=== PATIENT | male | born 1955 | race Caucasian/White ===

== ENCOUNTER 2023-10-25 10:03 | Outpatient (CLI) | payer MEDICARE, BC, SELFPAY | END 2023-10-25 10:04 | disposition home or self-care (01) | PROVIDERS: PCP Family Medicine; Visit Provider Family Medicine | DX: Z00.00 Encounter for general adult medical examination without abnormal findings (principal); I10 Essential (primary) hypertension; E78.2 Mixed hyperlipidemia; Z12.5 Encounter for screening for malignant neoplasm of prostate | CPT/HCPCS: 80048; 80061; 84460; G0103 ==

== ENCOUNTER 2024-03-10 23:28 | Emergency (ER) | payer MEDICARE, BC, SELFPAY ==
[2024-03-10 23:36] VITALS: BP 166/88; PULSE 74; RESP 20; TEMP 36.6; O2SAT 99; BMI 40.7
--- NOTE | 2024-03-10 23:54 | ED.GENADULT ---
HPI - General Adult General Time Seen by Provider: 23:54 Date Seen: 03/10/24 Chief complaint: Rib Pain Stated complaint: Fell down around 1700, R side pain Time Seen by Provider: 03/10/24 23:53 Source: patient, RN notes reviewed and old records reviewed Mode of arrival: ambulatory Limitations: no limitations History of Present Illness HPI narrative: This 68-year-old male is coming into the ER with right lateral lower chest wall pain. He was cutting wood earlier this evening, stepped over a log and fell. He is not exactly sure what he hit but he has subsequently developed right outside lower chest wall pain. It hurts with movement, hurts with deep breathing. He is not short of breath. He has no abdominal pain. There was no loss of consciousness, did not hit his head, no neck or back pain. No pain in any of his extremities, notes no other injuries with this. He does take an 81 mg aspirin daily but is not on any blood thinners otherwise. In review of his records, creatinine has ranged 1.2-1.3 with an estimated creatinine clearance of 58-62 since November of 2022. Note patient tried ibuprofen without any relief of symptoms earlier. Related Data Home Medications ?Medication ?Instructions ?Recorded ?Confirmed aspirin 81 mg tablet,delayed 81 mg PO QDAY 01/10/22 03/10/24 release cetirizine 10 mg tablet 10 mg PO QDAY PRN 01/10/22 03/10/24 fwfhnytw-os-egxqj 300 mcg-K 60 1 tab PO QDAY 01/10/22 03/10/24 mcg-lycop 600 mcg-lutein 300 mcg tablet (Centrum Silver Men) Previous Rx's ?Medication ?Instructions ?Recorded furosemide 20 mg tablet 20 mg PO DAILY #90 tabs 10/25/23 lisinopril 20 1 tab PO QDAY #90 tabs 10/25/23 mg-hydrochlorothiazide 25 mg tablet simvastatin 40 mg tablet 40 mg PO QPM #90 tabs 10/25/23 aluminum chloride 20 % topical 1 applic topical 2XW #37.5 mL 12/14/23 solution (Drysol) Allergies Allergy/AdvReac Type Severity Reaction Status Date / Time Penicillins Allergy Intermediate Blister Verified 03/10/24 23:38 naproxen Allergy Mild Blister Verified 03/10/24 23:38 Review of Systems Status of ROS: Reports: 6 or more systems reviewed and unremarkable except as noted in History and below [facility] Medical History Pes planus of both feet ?M21.41 - Flat foot [pes planus] (acquired), right foot (ICD-10) ?M21.42 - Flat foot [pes planus] (acquired), left foot (ICD-10) Hyperhidrosis ?R61 - Generalized hyperhidrosis (ICD-10) TAMMY on CPAP ?G47.33 - Obstructive sleep apnea (adult) (pediatric) (ICD-10) ?Z99.89 - Dependence on other enabling machines and devices (ICD-10) Erectile dysfunction ?N52.9 - Male erectile dysfunction, unspecified (ICD-10) Mixed hyperlipidemia ?E78.2 - Mixed hyperlipidemia (ICD-10) Primary hypertension ?I10 - Essential (primary) hypertension (ICD-10) Surgical History S/P shoulder surgery ?Z98.890 - Other specified postprocedural states (ICD-10) Status post vasectomy ?Z98.52 - Vasectomy status (ICD-10) Status post bunionectomy ?Z98.890 - Other specified postprocedural states (ICD-10) Family History Other Colon cancer Diabetes Social History Narrative: , six kids, retired, nonsmoker, social ETOH, goes camping on his land in [place] What is your current living situation?: I presently have a place to live Problems where you live: no known problems In the past 12 months, utilities in danger of being shut off: no In past 12 months, lack of transportation kept you from medical appts, meetings, work, or getting things needed for daily living: no In the past 12 mos, have been you worried that your food would run out before you had money to buy more?: never true In the past 12 mos, the food you bought just didn't last and you didn't have money to buy more?: never true Smoking Status: Former smoker Second hand tobacco smoke exposure: No How often do you have a drink containing alcohol: never AUDIT-C Alcohol total score: 0 Non-prescribed substance use: denies use How often does anyone, including family, friends and others, physically hurt you: never How often does anyone, including family, friends and others, insult or talk down to you: rarely How often does anyone, including family, friends and others, threaten you with harm: never How often does anyone, including family, friends and others, scream or curse at you: never Little interest or pleasure in doing things: not at all Feeling down, depressed, or hopeless: not at all Exam Const: Vital Signs, click to edit/add: Vital Signs - 24 hr 03/10/24 23:36 Temperature 97.9 F Pulse Rate [Right Pulse Oximeter] 74 Respiratory Rate 20 Blood Pressure [Ri ght Upper Arm] 166/88 H Pulse Oximetry 99 Oxygen Delivery Me thod Room Air Ish is a 68-year-old male that is alert, interactive, no apparent distress. Sitting up on the edge of the exam bed in room 1. Pupils equal round, conjugate gaze. Face atraumatic. Able speak in complete sentences, speech is normal. No midline tenderness over his neck or back. He has some generalized chest wall tenderness on the right lateral lower chest wall but no crepitus or step-off. Lungs are clear, good air entry, no wheezing or crackles. CV regular rate and rhythm, no murmur, normal S1-S2, no S3-S4. Abdomen is obese but soft, nontender. Patient ambulatory into the ED of his own accord. Documenting provider has reviewed patient's vital signs: yes Course Course ED Course: Discussed imaging modality options with patient. We can do chest x-ray with right rib views, but fractures can sometimes be missed on this imaging modality. We discussed the pros and cons of doing chest CT imaging. There is added expense with this imaging as well as radiation increased risk. Patient opted to have rib imaging done with plain films which I think is very reasonable in his situation. We did discuss that if the rib images do not show any fracture, we will be discussing clinical treatment and further pain management. Patient is in agreement with the plan, he is certainly hemodynamically stable and oxygenating well. Reevaluation(s) Time of Reevaluation #1: 01:27 Reevaluation #1: Reviewed with patient that there are 3 rib fractures, provided him a copy of his x-ray report. He is hemodynamically stable, oxygenating well. Discussed that we will hospitalize patients with rib fractures at times but agree that this patient certainly can be managed outpatient with his current clinical presentation. Will treat with oxycodone for pain management. Nursing staff appropriately brought up incentive spirometry, will send him home with 1, they will educate on use. He will need oxycodone from [facility]. Did provide 20 tablets as this patient is going to need longer pain management with 3 rib fractures. He does understand that he will need further supplies of pain management from his clinic. Vital Signs Vital signs: Initial Vital Signs Temperature 97.9 F 03/10/24 23:36 Temperature Source Temporal Artery Scan 03/10/24 23:36 Pulse Rate 74 03/10/24 23:36 Respiratory Rate 20 03/10/24 23:36 Blood Pressure 166/88 H 03/10/24 23:36 Blood Pressure Mean 114 H 03/10/24 23:36 Blood Pressure Position Sitting 03/10/24 23:36 Pulse Oximetry 99 03/10/24 23:36 Oxygen Delivery Method Room Air 03/10/24 23:36 Vital Signs Temperature 97.9 F 03/10/24 23:36 Pulse Rate 74 03/10/24 23:36 Respiratory Rate 20 03/10/24 23:36 Blood Pressure 166/88 H 03/10/24 23:36 Pulse Oximetry 99 03/10/24 23:36 Oxygen Delivery Method Room Air 03/10/24 23:36 Temperature 97.9 F 03/10/24 23:36 Pulse Rate 74 03/10/24 23:36 Respiratory Rate 20 03/10/24 23:36 Blood Pressure 166/88 H 03/10/24 23:36 Pulse Oximetry 99 03/10/24 23:36 Oxygen Delivery Method Room Air 03/10/24 23:36 Medications Administered Medications: Generic Name Dose Route Start Last Admin Trade Name Freq PRN Reason Stop Dose Admin Oxycodone HCl 5 mg 03/11/24 01:27 03/11/24 01:30 Oxycodone 5 Mg Tablet PO 03/11/24 01:28 5 mg ONCE ONE Administration Medical Decision Making Imaging Data Chest x-ray: Attestation: I have reviewed the pertinent imaging results. Radiologist's impression: Patient: ISH CHRISTOPHER Facility:?[facility] Patient ID:?[id number] Site Patient ID:?[id number]. Site :?[id number] Study:?XRay-Chest Right RIBS W/CXR-03/11/2024 12:27:59 AM Ordering Physician:Ashley Villarreal Final Report: Indication: Fall, right lateral lower chest wall pain Technique: Frontal view of the chest and four views of the right ribs Comparison: None Findings/Impression: 1. Mild cardiomegaly and atelectasis. 2. Mildly displaced fractures of the right 7th, 8th, and 9th ribs. No visualized pneumothorax. Dictated by Ivan Salazar MD @ 03/11/2024 1:21:33 AM (Electronic Signature) Discharge Plan Discharge Clinical Impression: Multiple rib fractures Qualifiers: Encounter type: initial encounter Fracture type: closed Laterality: right Qualified Code(s): S22.41XA - Multiple fractures of ribs, right side, initial encounter for closed fracture Patient Disposition: Home, Self-Care Condition: Stable Instructions: Rib Fracture (ED) Additional Instructions: Use Tylenol 1000 mg 3 times a day baseline for pain. Oxycodone is prescribed for more severe pain, follow bottle directions for dosing. You will need further prescriptions from your primary care provider for the oxycodone, please contact them to get scheduled for a recheck within the next few days and to get further pain management if needed. Oxycodone is a narcotic, do recommend taking with food. To avoid constipation from the narcotic, go on MiraLax 17 g daily an add in senna per package directions to maintain normal bowel movements. For the rib fractures, use the incentive spirometer to help keep the lungs aerated. Hanging onto the right chest wall with movement, coughing or sneezing can help diminish pain. Review handouts, if there concerning symptoms developing, please seek re-evaluation. Activity Level: Activity as Tolerated Prescriptions: No Action furosemide 20 mg tablet 20 mg PO DAILY Qty: 90 3RF lisinopril-hydrochlorothiazide 20-25 mg tablet 1 tab PO QDAY Qty: 90 1RF simvastatin 40 mg tablet 40 mg PO QPM Qty: 90 3RF aspirin 81 mg tablet,delayed release (DR/EC) 81 mg PO QDAY Centrum Silver Men 300-600-300 mcg tablet 1 tab PO QDAY cetirizine 10 mg tablet 10 mg PO QDAY PRN Drysol 20 % solution 1 applic topical 2XW Qty: 37.5 0RF Follow Up/Referrals: Phan Ambrose MD [Primary Care Provider] - Stand Alone Forms: [facility] Info Instructions
--- NOTE | 2024-03-11 | CRLHL7_ITS ---
For Patients: As a result of the Cures Act, medical imaging exams and procedure reports are released immediately into your electronic medical record. You may view this report before your referring provider. If you have questions, please contact your health care provider. Indication: Fall, right lateral lower chest wall pain Technique: Frontal view of the chest and four views of the right ribs Comparison: None Findings/Impression: 1. Mild cardiomegaly and atelectasis. 2. Mildly displaced fractures of the right 7th, 8th, and 9th ribs. No visualized pneumothorax. Dictated by Ivan Salazar MD @ 03/11/2024 1:21:33 AM (Electronically Signed)
[2024-03-11] MEDS: OXYCODONE 5 MG TABLET PO (01:30)
[2024-03-11 01:53] VITALS: BP 154/78; PULSE 78; RESP 20; TEMP 36.6; O2SAT 99
[2024-03-11 01:54] VITALS: BP 154/78; PULSE 78; RESP 20; TEMP 36.6
== END 2024-03-11 01:54 | disposition home or self-care (01) ==
PROVIDERS: Emergency Provider Family Medicine; PCP Family Medicine
DX: S22.41XA Multiple fractures of ribs, right side, initial encounter for closed fracture (principal)
CPT/HCPCS: 71101; 99283; 99284; A9270

== ENCOUNTER 2024-11-04 10:04 | Outpatient (CLI) | payer MEDICARE, BC, SELFPAY | END 2024-11-04 10:05 | disposition home or self-care (01) | PROVIDERS: PCP Family Medicine; Visit Provider Family Medicine | DX: E78.2 Mixed hyperlipidemia (principal); I10 Essential (primary) hypertension; R06.09 Other forms of dyspnea; Z12.5 Encounter for screening for malignant neoplasm of prostate | CPT/HCPCS: 80048; 80061; 83880; 84443; 84460; 85025; G0103 ==

== ENCOUNTER 2024-11-12 14:40 | Outpatient (CLI) | payer MEDICARE, BC, SELFPAY ==
[2024-11-12] MEDS: PERFLUTREN LIPID MICROSPHERES 2 ML VIAL IVP (15:14)
[2024-11-12 15:30] VITALS: BP 146/70; PULSE 98; RESP 18
--- NOTE | 2024-11-12 15:44 | W.PM.STED ---
Stress Test Note Date Date Seen: 11/12/24 Date of test: 11/12/24 Providers Primary care provider: Phan Ambrose Stress test physician: Cherelle Nelson Stress Test Note Stress test ordered: Stress Echo Indication for test: Dyspnea Stress test medicine: [facility] Results discussion: Resting EKG: Sinus rhythm, 91 beats per minute, right bundle branch block, intra conduction delay. Resting blood pressure: 141/86 Stress test: Patient is consented on stress test ordered. Patient exercised on the treadmill following standard Fred protocol. He was able to exercise for 2 minutes 56 seconds, equivocal aunt to 4.4 Mets. He had to stop due to shortness of breath. He reached a maximum heart rate of 158 beats per minute which was 124% of a calculated target heart rate of 127. He had a maximum blood pressure 164/74 giving him a rate pressure product of 25,912. Patient had no arrhythmia, no definitive ischemic change. His blood pressure, pulse and symptoms resolve nicely during recovery. No diagnostic changes on this EKG. Impression: Subjectively significant for dyspnea, objectively negative EKG on this stress echo. Follow up suggested: Patient is discharged to home in stable condition. Await echo images to couple this for a full formal diagnostic.
== END 2024-11-12 14:41 | disposition home or self-care (01) ==
LOC: STRESS 14:41
PROVIDERS: PCP Family Medicine; Visit Provider Family Medicine
DX: R07.89 Other chest pain (principal); R06.09 Other forms of dyspnea
CPT/HCPCS: 93016; 93325; 93351; Q9957

== ENCOUNTER 2025-02-25 09:16 | Outpatient (CLI) | payer MEDICARE, BC, SELFPAY | END 2025-02-25 09:17 | disposition home or self-care (01) | PROVIDERS: PCP Family Medicine; Visit Provider Family Medicine | DX: I10 Essential (primary) hypertension (principal) | CPT/HCPCS: 80048; 85025 ==

== ENCOUNTER 2025-03-16 06:09 | Day surgery (SDC) | payer MEDICARE, BC, SELFPAY ==
[2025-03-16] VITALS (17 sets, daily range): BP systolic 104–150; BP diastolic 54–74; PULSE 61–96; RESP 14–20; TEMP 36.1–36.8; O2SAT 93–97; BMI 42.5
[2025-03-16] MEDS: LACTATED RINGERS 1000 ML 1,000 ML 100 ML IV ×3 (06:45→09:32)
[2025-03-16] MEDS: SODIUM CHLORIDE 0.9 % (FLUSH) 10 ML SYRINGE IVF (06:45)
[2025-03-16] MEDS: CELECOXIB 200 MG CAPSULE PO (06:57)
[2025-03-16] MEDS: OXYCODONE (CR) 10 MG TAB.ER.12H PO (06:57)
[2025-03-16] MEDS: ACETAMINOPHEN 500 MG TABLET 1000 MG PO ×2 (06:57→12:45)
[2025-03-16] MEDS: MIDAZOLAM HCL 1 MG/ML inj IVP (07:22)
--- NOTE | 2025-03-16 07:35 | SUR.PREOP ---
TIME?OUT:? left knee, 0720 PT/RN/MDA?VERIFICATION?OF?SURGICAL?SITE,?PROCEDURE,?AND?CONSENT OBTAINED?PRIOR?TO?INVASIVE?PROCEDURE.
[2025-03-16] MEDS: TRANEXAMIC ACID 100 MG/ML INJ 1000 MG IV (08:00)
--- NOTE | 2025-03-16 08:10 | P.NB_ITS ---
Nerve Block Nerve Block Time Seen by Provider: 07:28 Date Seen: 03/16/25 Type of block requested by surgeon for post-operative analgesia: geniculars Side: left Time out performed: Yes Verification of patient name: Yes Verification of date of : Yes Site marking: site marked Name of person performing procedure: Khanh Continuous monitoring Was continuous monitoring of O2 sat, B/P, ekg monitor tech, recorded every 15 minutes?: Yes Procedure Checklist: sterile prep, needles and gloves Ultrasound guided. Images saved: Yes Medications given in 5ml increments after negative aspiration: Marcaine %: 0.25 mL: 9 Needle gauge: 25 Patient tolerated procedure well: Yes Block Charges Block Charge (with Pro Fee): Genicular Nerve Block
--- NOTE | 2025-03-16 08:10 | P.NB_ITS ---
Nerve Block Nerve Block Time Seen by Provider: 07:28 Date Seen: 03/16/25 Type of block requested by surgeon for post-operative analgesia: adductor canal Side: left Time out performed: Yes Verification of patient name: Yes Verification of date of : Yes Site marking: site marked Name of person performing procedure: Khanh Continuous monitoring Was continuous monitoring of O2 sat, B/P, machine setup operator, recorded every 15 minutes?: Yes Procedure Checklist: sterile prep, needles and gloves Ultrasound guided. Images saved: Yes Medications given in 5ml increments after negative aspiration: Marcaine %: 0.25 mL: 15 Needle gauge: 20 Precedex (mcg): 25 Patient tolerated procedure well: Yes Block Charges Block Charge (with Pro Fee): Femoral Nerve Use of Ultrasound Machine for Block: Yes- US Guidance/pain block
--- NOTE | 2025-03-16 08:10 | P.ANES_ITS ---
Anesthesia Charges Start Date/Time Anesthesia Start Date: 03/16/25 Anesthesia Start Time: 07:34 Stop Date/Time Anesthesia Stop Date: 03/16/25 Anesthesia Stop Time: 10:18 Summary Extremes of Age - Over 70 or under 1: MDA Coding CPT Codes CPT Codes: ANESTH KNEE ARTHROPLASTY - 29632 ([id number]) P3 - PATIENT W/SEVERE SYS DISEASE, QK - INSTALLER MOLDING AND TRIM 2-4 CNCRNT ANES PROC, QX - VICE PRESIDENT CLIENT SERVICES SVC W/ MD MED DIRECTION Additional Codes: Summary - Extremes of Age - Over 70 or under 1: MDA ([id number])
--- NOTE | 2025-03-16 08:10 | W.ANESCHARGE ---
Anesthesia Charges Start Date/Time Anesthesia Start Date: 03/16/25 Anesthesia Start Time: 07:34 Stop Date/Time Anesthesia Stop Date: 03/16/25 Anesthesia Stop Time: 10:18 Summary Extremes of Age - Over 70 or under 1: MDA Coding CPT Codes CPT Codes: ANESTH KNEE ARTHROPLASTY - 74895 ([id number]) P3 - PATIENT W/SEVERE SYS DISEASE, QK - SENIOR MEDICAL DIRECTOR 2-4 CNCRNT ANES PROC, QX - CLAM BED WORKER SVC W/ MD MED DIRECTION Additional Codes: Summary - Extremes of Age - Over 70 or under 1: MDA ([id number])
--- NOTE | 2025-03-16 09:35 | CRLHL7_ITS ---
For Patients: As a result of the Cures Act, medical imaging exams and procedure reports are released immediately into your electronic medical record. You may view this report before your referring provider. If you have questions, please contact your health care provider. Indication: Postop TKA Technique: Two views left knee Findings/Impression: Hardware from a left total knee arthroplasty is in satisfactory position. Bone alignment is normal. No sign of acute fracture. Postop changes are within normal limits. Dictated by Phan Miner MD @ 03/16/2025 10:56:46 AM (Electronically Signed)
--- NOTE | 2025-03-16 09:39 | PM.ORPRC ---
Procedure Note Date of procedure: 03/16/25 Procedure: PREOPERATIVE DIAGNOSIS: Left knee osteoarthritis POSTOPERATIVE DIAGNOSIS: Left knee osteoarthritis NAME OF OPERATION: Left total knee arthroplasty SURGEON: Vishal Muniz MD LANDSCAPER HELPER: ROCK Bowles ANESTHESIA: Spinal ESTIMATED BLOOD LOSS: 0 mL COMPLICATIONS: None SPECIMENS: None DRAINS: None PREOPERATIVE ANTIBIOTICS: Ancef 3 g, antibiotic impregnated cement IMPLANTS: 1. J&J Attune revision CRS # 8 posterior stabilized femur, 14 mm x 50 mm cemented stem 2. Revision CRS # 7 fixed-bearing tibia, 14 mm x 50 mm cemented stem cell 3. # 8 posterior stabilized, 5 mm fixed-bearing polyethylene 4. 41 patella INDICATIONS: The patient is a 69-year-old with a longstanding history of severe, unrelenting left knee pain secondary to end-stage (grade IV) left knee osteoarthritis. Despite appropriate nonoperative management, including activity modification, anti-inflammatories, aavx-omm-snczqrv pain medication, bracing, physical therapy, and injections they continue to have pain and disability. Operative intervention was offered. The risks, benefits and expected outcomes were discussed in detail. These included but were not limited to: Infection, bleeding, injury to blood vessel or nerve, venous thromboembolism. All questions were answered to their satisfaction. Use of an physical therapy assistant instructor was necessary throughout the case for patient positioning and safety, soft tissue retraction, and closure. A modifier 22 should be added to this case. The patient's BMI of 42.5 made the dissection a challenge. Additionally, to reduce the risk of aseptic loosening and infection, stemmed components and antibiotic impregnated cement were used. This added cost and time to complete the case. PROCEDURE: Spinal anesthesia was administered. The patient was placed supine on the operating table. The physical therapy assistant instructor made sure the patient was positioned appropriately. The lower extremity was prepped and draped in the usual sterile fashion. The limb was exsanguinated with the Aidan bandage. The pneumatic tourniquet was inflated to 225mmHg. A standard anterior incision was made with the knee in flexion. Subcutaneous dissection was sharply taken through fascial layer #1. Full-thickness medial and lateral flaps were elevated. The physical therapy assistant instructor retracted the soft tissues and protected them throughout the case. A standard subvastus approach was made. The patella was subluxed. The infrapatellar fat pad was preserved. The menisci and cruciate ligaments were sharply d?brided. Marginal osteophytes were d?brided with the rongeur. The drill was used to penetrate the femoral canal. The intramedullary femoral guide was placed for a 5-degree valgus cut, removing 10 mm off the distal femur. The saw was used to make the cut. Whitesides line and the trans epicondylar axis were marked. The femoral sizing guide was pinned onto the distal femur. Three degrees of external rotation nicely parallels the transepicondylar axis. Pins were placed for posterior referencing. The four-in-one cutting guide was pinned onto the distal femur. The anterior, posterior, and chamfer cuts were made. The physical therapy assistant instructor protected the collateral ligaments. The revision trial was placed. The box cuts were made. The drill was used x2. The stemmed, boxed trial was placed and was an excellent fit. Attention was then turned to the proximal tibia. The intramedullary tibial guide was placed for a neutral varus/valgus cut with shoulder delete that 3 degrees of posterior slope, removing 2 mm based off the medial tibial surface. The physical therapy assistant instructor protected the collateral ligaments and the neurovascular bundle. The saw was used to make the cut. Trial components were placed. The knee was nicely balanced in both flexion and extension. The trial components were removed. The tray was placed in appropriate rotation, parallel to our tibial cutting pins. It was pinned by the physical therapy assistant instructor and the drill x2 was used. The stemmed tibial trial was placed. The punch was used. The tray was removed. The punch was used again. Attention was then turned to the patella. Gambell patellar thickness was 25.5 mm. The lobster claw resection guide was used with the 9.5 mm clark. The saw was used to make the cut. Drill holes were made by the physical therapy assistant instructor. The trial was placed and was an excellent fit. Cancellous surfaces were irrigated with pulse lavage and thoroughly dried by the physical therapy assistant instructor. We cemented the tibial component, then the femoral component. We impacted the 5 mm polyethylene onto the tibial tray. The knee was brought into full extension. We then cemented the patellar component. Excessive cement was removed. The cement was allowed to harden. The knee was taken through a range of motion and was found to be nicely balanced in both flexion and extension. The patella tracks centrally. The physical therapy assistant instructor did a three minute dilute Betadine solution soak. The physical therapy assistant instructor irrigated the wound with 3 liters of normal saline via pulse lavage. The physical therapy assistant instructor reapproximated the extensor mechanism with #1 Vicryl in an interrupted [id number] fashion. The physical therapy assistant instructor then ran the extensor mechanism with a #1 PDO Stratafix. The physical therapy assistant instructor closed the subcutaneous tissues with a 3-0 Stratafix and the skin with a running 3-0 Stratafix in a subcuticular fashion. Glue was used to seal the skin. The physical therapy assistant instructor placed a dry dressing. Sponge and needle counts were correct x2. The patient tolerated the procedure well. There were no apparent complications. They were carefully transferred to the hospital bed and taken to the postanesthesia care unit in satisfactory condition. PLAN: The patient will be mobilized with physical therapy. Aspirin will be used for DVT prophylaxis. They will be discharged to home once medically appropriate.
--- NOTE | 2025-03-16 10:16 | P.ANES_ITS ---
Anesthesia Charges Start Date/Time Anesthesia Start Date: 03/16/25 Anesthesia Start Time: 07:34 Stop Date/Time Anesthesia Stop Date: 03/16/25 Anesthesia Stop Time: 10:18 Summary Extremes of Age - Over 70 or under 1: INSULATION PROFESSIONAL Coding CPT Codes CPT Codes: ANESTH KNEE ARTHROPLASTY - 71867 ([id number]) P3 - PATIENT W/SEVERE SYS DISEASE, QK - CONDITIONING MACHINE OPERATOR 2-4 CNCRNT ANES PROC, QX - INSULATION PROFESSIONAL SVC W/ MD MED DIRECTION Additional Codes: Summary - Extremes of Age - Over 70 or under 1: INSULATION PROFESSIONAL ([id number])
--- NOTE | 2025-03-16 10:16 | W.ANESCHARGE ---
Anesthesia Charges Start Date/Time Anesthesia Start Date: 03/16/25 Anesthesia Start Time: 07:34 Stop Date/Time Anesthesia Stop Date: 03/16/25 Anesthesia Stop Time: 10:18 Summary Extremes of Age - Over 70 or under 1: BOAT CLEANING SUPERVISOR Coding CPT Codes CPT Codes: ANESTH KNEE ARTHROPLASTY - 67121 ([id number]) P3 - PATIENT W/SEVERE SYS DISEASE, QK - COMPUTER ANALYST 2-4 CNCRNT ANES PROC, QX - BOAT CLEANING SUPERVISOR SVC W/ MD MED DIRECTION Additional Codes: Summary - Extremes of Age - Over 70 or under 1: BOAT CLEANING SUPERVISOR ([id number])
--- NOTE | 2025-03-16 13:01 | SUR.PHASEII ---
Pt urinated prior to PT
--- NOTE | 2025-03-16 14:19 | SUR.PHASEII ---
Pt did well in PT. Pt did have an emesis during his time there. Pt states he feels better now. Rating pain in left knee 08/17. Applied ice pack. Pt and states they reviewed d/c instructions. Pt and verbalized ready for discharge. All questions answered. Wheelchair out to car with .
== END 2025-03-16 13:45 | disposition home or self-care (01) ==
LOC: OR 06:10
PROVIDERS: PCP Family Medicine; Visit Provider Orthopaedic Surgery
PROC: (CPT 27447; principal; 2025-03-16 07:30)
DX: M17.12 Unilateral primary osteoarthritis, left knee (principal); G89.18 Other acute postprocedural pain; E66.9 Obesity, unspecified; Z68.41 Body mass index [BMI] 40.0-44.9, adult; I10 Essential (primary) hypertension; G47.33 Obstructive sleep apnea (adult) (pediatric); Z79.899 Other long term (current) drug therapy; E78.2 Mixed hyperlipidemia
CPT/HCPCS: 27447; 01402; 64447; 64454; 73560; 76942; 97110; 97116; 97162; 99100; A9270; C1776; J0665; J0690; J2250; J2371; J2405; J2704; J3010; J7120

== ENCOUNTER 2025-03-21 12:20 | Emergency (ER) | payer MEDICARE, BC, SELFPAY ==
--- OUTSIDE RECORDS SUMMARY | 2025-03-21 12:22 | XMS_ITS | Clinical Summary ---
Author Organization [facility] Address [address] [place] [id number] Care Team Providers Care Sound Truck Operator Name Role Phone Master Shoemaker MD Primary Care Provider [phone] Allergies Active Allergy Reactions Criticality Noted Date Comments Nsaids (Non-Steroidal Anti-Inflammatory Drug) 11/18/2008 Lesions in mouth. Penicillins Rash 01/17/2016 Medications VIAGRA 100 MG TAB use 1/2 to 1 one hour prior to anticipated activity 6 3 7 Active MULTIVITAMIN TAB take 1 tablet by oral route once daily with food 0 9 Active furosemide (LASIX) 20 mg tablet Take 20 mg by mouth every morning. 4 Active simvastatin (ZOCOR) 40 mg tablet Take 40 mg by mouth at bedtime. 4 Active aspirin (ECOTRIN) 81 mg enteric coated tablet Take 1 Tablet (81 mg) by mouth once daily with a meal. 4 Active Cetirizine 10 mg cap Take 1 Capsule (10 mg) by mouth once daily if needed. 4 Active lisinopril-hydr ochlorothiazide , 20-25 mg, (PRINZIDE, ZESTORETIC) 20-25 mg per tablet Take 1 Tablet by mouth once daily. 4 Active Active Problems Problem Noted Date Diagnosed Date Venous insufficiency 10/17/2023 Plantar fasciitis 11/22/2008 Social History Tobacco Use Types Packs/Day Years Used Date Smoking Tobacco: Former Passive Smoke Exposure: Never Smokeless Tobacco: Never Tobacco Cessation:Counseling Given: Yes Alcohol Use Standard Drinks/Week Comments Yes 0 (1 standard drink = 0.6 oz pur e alcohol) 4-5 beers a day Interpersonal Safety Answer Date Record ed Are you being hit, kicked, p ushed or yelled at (see row info)? No 06/24/2024 Interpersonal Safety Abuse 12 - 18 Not on file 06/24/2024 Interpersonal Safety Ambulatory Vulnerability No t on file 06/24/2024 Sex and Gender Information Value Date Recorded Sex Assigned at Not on file Legal Sex Male 5:24 AM VENDOR ANALYST Gender Identity Not on file Sexual Orientation Not on file Obstetrics History Last Filed Vital Signs Vital Sign Reading Time Taken Comments Blood Pressure 147/86 06/24/2024 8:42 AM VENDOR ANALYST Pulse 81 06/24/2024 8:42 AM VENDOR ANALYST Temperature 36.3 C (97.3 F) 06/24/2024 8:42 AM VENDOR ANALYST Respiratory Rate 16 06/24/2024 8:42 AM VENDOR ANALYST Oxygen Saturation 95% 06/24/2024 8:42 AM VENDOR ANALYST Inhaled Oxygen Concentration - - Weight 135.2 kg (298 lb) 06/24/2024 7:10 AM VENDOR ANALYST Height 182.9 cm (6') 06/24/2024 7:10 AM VENDOR ANALYST Body Mass Index 40.42 06/24/2024 7:10 AM VENDOR ANALYST Plan of Treatment Health Maintenance Due Date Last Done Comments Tetanus booster 1964 Depression screening for age 12+ 1965 BMI (ht and wt on same day) for age 18+ 1971 Hepatitis C screening for age 18-79 1971 Pneumococcal series for age 50+ (1 of 1 - PCV) 2003 Zoster (shingles) series for age 50+ (1 of 2) 2003 Lipids for age 45-75 04/22/2011 04/22/2006 RSV vaccine for adults or (1 - Risk 60-74 years 1-dose series) 2013 AAA screening age 65-74 2018 Medicare Wellness for age 65+ 2018 COVID-19 vaccine series (5 - season) 2025 10/29/2022, 02/15/2022, 08/13/2020, Additional history exists Influenza Vaccine (#1) 2025 Colonoscopy through age 75 01/16/202601/16, 01/17/2016, 01/17/2016 Hepatitis B series for 19+ Aged Out N o longer eligible based on patient's age to complete this topic Procedures Procedure Name Priority Date/Time Associated Diagnosis Comments COLONOSCOPY 01/17/2016 8:02 AM CDT LIPID PANEL Timed 04/22/2006 9:01 AM VENDOR ANALYST from Last 3 Months or Most Recently Relevant to Health Maintenance Results * COLONOSCOPY (01/17/2016 8:02 AM CDT) 01/17/2016 8:02 AM CDT Narrative 01/17/2016 8:02 AM CDT Patient Name: Karl Lopes Procedure Date: 01/17/2016 Gender: Male Date of : 1955 Admit Type: Outpatient Procedure: Colonoscopy Proceduralist: Aidan Sullivan MD Indications/Pre-Op Diagnosis: Screening for colorectal malignant neoplasm, Last colonoscopy 10 years ago Medications: Fentanyl 100 micrograms IV, Midazolam 2 mg IV, The level of sedation administered was moderate Procedure Description: The patient had risks, benefits and alternatives explained to and gave informed consent. The patient had a stable cardiopulmonary status and judged an adequate candidate for conscious sedation. The PCF-Q290AL [id number] was passed through the anus and advanced to the cecum, identified by appendiceal orifice and ileocecal valve. The colonoscopy was performed without difficulty. The patient tolerated the procedure well. The quality of the bowel preparation was excellent. The ileocecal valve, appendiceal orifice, and rectum were photographed. Complications: No immediate complications. Estimated Blood Loss & Specimen: Estimated blood loss: none. Specimen collected - None Findings: The perianal and digital rectal examinations were normal. The entire examined colon appeared normal on direct and retroflexion views. Impressions/Post-Op Diagnosis: - The entire examined colon is normal on direct and retroflexion views. - No specimens collected. Recommendation: - Patient has a contact number available for emergencies. The signs and symptoms of potential delayed complications were discussed with the patient. Return to normal activities tomorrow. Written discharge instructions were provided to the patient. - Resume previous diet. - Continue present medications. - Repeat colonoscopy in 10 years for screening purposes. Aidan Sullivan MD 01/17/2016 9:12:03 AM This report has been signed electronically. Note Initiated On: 01/17/2016 8:02 AM Procedure Code(s): --- Professional --- G0121, Colorectal cancer screening; colonoscopy on individual not meeting criteria for high risk Diagnosis Code(s): --- Professional --- Z12.11, Encounter for screening for malignant neoplasm of colon CPT copyright 2015 [employer]. All rights reserved. The codes documented in this report are preliminary and upon greenhouse specialist review may be revised to meet current compliance requirements. Scope In: 8:42:59 AM Scope Withdrawal Time 0 hours 9 minutes 50 seconds Scope Out: 9:02:49 AM Procedure Note Aidan Sullivan MD - 01/17/2016 9:12 AM CDT Patient Name: Karl Lopes Procedure Date: 01/17/2016 Gender: Male Date of : 1955 Admit Type: Outpatient Procedure: Colonoscopy Proceduralist: Aidan Sullivan MD Indications/Pre-Op Diagnosis: Screening for colorectal malignant neoplasm, Last colonoscopy 10 years ago Medications: Fentanyl 100 micrograms IV, Midazolam 2 mgIV, The level of sedation administered wasmoderate Procedure Description: The patient had risks, benefits and alternatives explained to andgave informed consent. The patient had a stable cardiopulmonary status and judged an adequate candidate for conscious sedation. The PCF-Q290AL [id number] was passed through the anus and advanced tothe cecum, identified by appendiceal orifice and ileocecal valve. The colonoscopy was performed without difficulty. The patient toleratedthe procedure well. The quality of the bowel preparation was excellent.The ileocecal valve, appendiceal orifice, and rectum were photographed. Complications: No immediate complications. Estimated Blood Loss & Specimen: Estimated blood loss: none. Specimen collected - None Findings: The perianal and digital rectal examinations were normal. The entire examined colon appeared normal on direct and retroflexion views. Impressions/Post-Op Diagnosis: - The entire examined colon is normal on direct and retroflexionviews. - No specimens collected. Recommendation: - Patient has a contact number available for emergencies. The signsand symptoms of potential delayed complications were discussed with the patient. Return to normal activities tomorrow. Written discharge instructions were provided to the patient. - Resume previous diet. - Continue present medications. - Repeat colonoscopy in 10 years for screening purposes. Aidan Sullivan MD 01/17/2016 9:12:03 AM This report has been signed electronically. Note Initiated On: 01/17/2016 8:02 AM Procedure Code(s): --- Professional --- G0121, Colorectal cancer screening;colonoscopy on individual not meeting criteria for highrisk Diagnosis Code(s): --- Professional --- Z12.11, Encounter for screening formalignant neoplasm of colon CPT copyright 2015 [employer]. All rights reserved. The codes documented in this report are preliminary and upon greenhouse specialist reviewmay be revised to meet current compliance requirements. Scope In: 8:42:59 AM Scope Withdrawal Time 0 hours 9 minutes 50 seconds Scope Out: 9:02:49 AM us Aidan Sullivan MD PROCEDURE ORD Final Res ult * (ABNORMAL) LIPID PANEL (04/22/2006 9:01 AM VENDOR ANALYST) CHOLESTEROL,TOTAL 205(H) 110 - 199 mg/dL [facility] TRIGLYCERIDES 47 <150 mg/dL [facility] HDL CHOLESTEROL 67 >40 mg/dL [facility] CHOL/HDL RATIO 3.06 <4.51 [facility] LDL CHOLESTEROL 129 <131 mg/dL [facility] PATIENT STATUS Fasting [facility] 04/22/2006 9:01 AM VENDOR ANALYST 04/22/2006 9:01 AM VENDOR ANALYST Efra Barrios MD CHEMISTRY Final Re sult [facility] [address] [place], [place] [id number] from Last 3 Months or Most Recently Relevant to Health Maintenance Insurance [place] BLUE MR PB ONLY [place] ONLY MEDICARE PART B HB ONLY [place] ONLY MEDICARE PART A HB ONLY Care Teams Sound Truck Operator Relationship Specialty Start Date End Date Master Shoemaker MD PCP - General Family Practice 01/17/16
[2025-03-21 12:27] VITALS: BP 126/72; PULSE 99; RESP 18; TEMP 36.4; O2SAT 99
--- NOTE | 2025-03-21 12:38 | ED.GENADULT ---
HPI - General Adult General Date Seen: 03/21/25 Chief complaint: Post Op Complication Stated complaint: L TKA few days ago, having bleeding Time Seen by Provider: 03/21/25 12:37 History of Present Illness HPI narrative: 69 yo M presenting to the ER today with bleeding from his left knee incision site. Her medical record he had left total knee arthroplasty done on 03/16 (5 days ago) by Dr. Stoll here at [facility]. Surgery was done because of severe underlying left knee pain due to arthritis. He is on acetaminophen, and oxycodone, and aspirin 81 mg, furosemide, . No other anticoagulants. Other past medical includes elevated BMI, Lyme disease, hyperlipidemia, hypertension, sleep apnea with CPAP for, colon polyp. He has been recovering well from his surgery, getting around on his walker and ambulating well. Pain is well controlled. He has noticed fair amount of bruising and swelling on the distal thigh and in the calf down to the foot but that is not getting worse. His lower leg is not really painful. No numbness. No other discoloration or pallor Yesterday he noticed about a quarter-size amount of blood soaking through his dressing on his knee. It is a little bit bigger today. He is not having any fever but notices that the skin on the lateral side of his knee is slightly red. Per his discharge instructions, he came to the ER today to have the bleeding checked out. His knee is not actively bleeding here in the ER. No other unusual bleeding or bruising. No fever. No chest pain. No trouble breathing. . Related Data Home Medications ?Medication ?Instructions ?Recorded ?Confirmed aspirin 81 mg tablet,delayed 81 mg PO QDAY 01/10/22 03/16/25 release Held on 03/16/25. Instructions: Resume on 04/16/25. cetirizine 10 mg tablet 10 mg PO QDAY PRN 01/10/22 03/16/25 bvycndwi-kg-lesqt 300 mcg-K 60 1 tab PO QDAY 01/10/22 03/16/25 mcg-lycop 600 mcg-lutein 300 mcg tablet (Centrum Silver Men) triamcinolone acetonide 0.1 % 1 applic dental QDAY PRN 11/04/24 03/01/25 dental paste Previous Rx's ?Medication ?Instructions ?Recorded simvastatin 40 mg tablet 40 mg PO QPM #90 tabs 11/04/24 furosemide 20 mg tablet 20 mg PO DAILY #90 tabs 11/10/24 losartan 100 1 tab PO QDAY #90 tabs 12/10/24 mg-hydrochlorothiazide 25 mg tablet acetaminophen 500 mg capsule 500 - 1,000 mg (1 - 2 x 500 mg) PO 03/16/25 Q6H PRN pain #100 caps aspirin 81 mg chewable tablet 81 mg PO BID for DVT prophylaxis 03/16/25 (Aspirin Childrens) 30 days #60 tabs oxycodone 5 mg tablet 2.5 - 5 mg (0.5 - 1 x 5 mg) PO 03/16/25 Q4-6H PRN Pain #42 tabs sennosides 8.6 mg tablet (Senna 17.2 mg (2 x 8.6 mg) PO BID PRN 03/16/25 Lax) constipation #100 tabs Allergies Allergy/AdvReac Type Severity Reaction Status Date / Time Penicillins Allergy Intermediate Blister Verified 03/21/25 12:32 naproxen Allergy Mild Blister Verified 03/21/25 12:32 [facility] Medical History (Updated 03/21/25 @ 13:31 by Greyson Alvarez MD) Pes planus of both feet ?M21.41 - Flat foot [pes planus] (acquired), right foot (ICD-10) ?M21.42 - Flat foot [pes planus] (acquired), left foot (ICD-10) Hyperhidrosis ?R61 - Generalized hyperhidrosis (ICD-10) TAMMY on CPAP ?G47.33 - Obstructive sleep apnea (adult) (pediatric) (ICD-10) ?Z99.89 - Dependence on other enabling machines and devices (ICD-10) Erectile dysfunction ?N52.9 - Male erectile dysfunction, unspecified (ICD-10) Mixed hyperlipidemia ?E78.2 - Mixed hyperlipidemia (ICD-10) Primary hypertension ?I10 - Essential (primary) hypertension (ICD-10) Surgical History (Updated 03/16/25 @ 15:00 by Myranda Chavira ~ TRIMMER SORTER, TRIMMER SORTER) History of arthroplasty of left knee (03/16/25) ?Z96.652 - Presence of left artificial knee joint (ICD-10) History of arthroscopy of left shoulder (09/29/04) ?Z98.890 - Other specified postprocedural states (ICD-10) History of arthroscopy of right shoulder (04/26/06) ?Z98.890 - Other specified postprocedural states (ICD-10) Status post vasectomy ?Z98.52 - Vasectomy status (ICD-10) Status post bunionectomy ?Z98.890 - Other specified postprocedural states (ICD-10) Family History Other Colon cancer Diabetes Social History Narrative: , six kids, retired, nonsmoker, social ETOH, goes camping on his land in [place] What is your current living situation?: I presently have a place to live Problems where you live: no known problems In the past 12 months, utilities in danger of being shut off: no In past 12 months, lack of transportation kept you from medical appts, meetings, work, or getting things needed for daily living: no In the past 12 mos, have been you worried that your food would run out before you had money to buy more?: never true In the past 12 mos, the food you bought just didn't last and you didn't have money to buy more?: never true Smoking Status: Former smoker Second hand tobacco smoke exposure: No How often do you have a drink containing alcohol: 4 or more times a week Alcohol type: beer and hard liquor How many standard drinks containing alcohol do you have on a typical day: 5 or 6 AUDIT-C Alcohol total score: 6 Non-prescribed substance use: denies use How often does anyone, including family, friends and others, physically hurt you: never How often does anyone, including family, friends and others, insult or talk down to you: rarely How often does anyone, including family, friends and others, threaten you with harm: never How often does anyone, including family, friends and others, scream or curse at you: never Health Related Social Needs: Other personal risk factors, not elsewhere classified (Z91.89) Exam Narrative: Exam Narrative: Constitutional: Appears well-developed and well-nourished. Active. Non-toxic appearing. Very polite. HENT: Head: Atraumatic. No signs of injury. Nose: No nasal discharge. Mouth/Throat: Mucous membranes are moist. Pharynx is normal. Tonsils symmetric. Uvula midline. Airway patent. Eyes: Conjunctivae normal and EOM are normal. Pupils are equal, round, and reactive to light. Right eye exhibits no discharge. Left eye exhibits no discharge. No icterus. Neck: Normal range of motion. Neck supple. No adenopathy. No stridor. Cardiovascular: Normal rate and regular rhythm. No murmur heard. No murmurs, rubs, or gallops. Brisk capillary refill . Normal DP pulses. Normal distal cap refill. Pulmonary/Chest: Effort normal. No stridor. No respiratory distress. Musculoskeletal: Normal except for his left lower extremity- Normal range of motion. No edema. No tenderness. No deformity. Left lower extremity: Hip is nontender. Thigh is normal. There is a little bit of bruising and ecchymosis on the distal medial thigh which is expected for postop knee replacement. He has a long rectangular dressing in place over the incision on his anterior knee. At about the distal 1/4 markedly dressing there is a quarter-size drop of dry blood saturating the dressing. No signs of active bleeding. I do notice a little bit of erythema on the lateral knee, lateral to the dressing. Subtle warmth there. No tenderness. Also some bruising and ecchymosis on the proximal tibia and fibula and some edema all the way down to the foot which he reports is stable since his operation on Saturday. After we take his dressing down we can evaluate the incision. The wound edges nicely apposed and currently dry. No active bleeding. No purulent drainage. I do not see much erythema along the wound edge other than a small rim less than a cm in size. The area that had been bleeding at the distal 1/4 of the incision is no longer bleeding. There is no purulent drainage, no surrounding erythema there either. Neurological: Alert. Normal strength. No cranial nerve deficit or sensory deficit. Coordination normal. GCS eye subscore is 4. GCS verbal subscore is 5. GCS motor subscore is 6. Skin: Skin is warm. No rash noted. Const: Vital Signs, click to edit/add: Vital Signs - 24 hr 03/21/25 12:27 Temperature 97.5 F L Pulse Rate [Pulse Oximeter] 99 Respiratory Rate 18 Blood Pressure [Ri ght Upper Arm] 126/72 Pulse Oximetry 99 Oxygen Delivery Me thod Room Air Course Vital Signs Vital signs: Initial Vital Signs Temperature 97.5 F L 03/21/25 12:27 Temperature Source Temporal Artery Scan 03/21/25 12:27 Pulse Rate 99 03/21/25 12:27 Pulse Rhythm Regular 03/21/25 12:27 Respiratory Rate 18 03/21/25 12:27 Blood Pressure 126/72 03/21/25 12:27 Blood Pressure Mean 90 03/21/25 12:27 Blood Pressure Position Sitting 03/21/25 12:27 Pulse Oximetry 99 03/21/25 12:27 Oxygen Delivery Method Room Air 03/21/25 12:27 Vital Signs Temperature 97.5 F L 03/21/25 12:27 Pulse Rate 99 03/21/25 12:27 Respiratory Rate 18 03/21/25 12:27 Blood Pressure 126/72 03/21/25 12:27 Pulse Oximetry 99 03/21/25 12:27 Oxygen Delivery Method Room Air 03/21/25 12:27 Temperature 97.5 F L 03/21/25 12:27 Pulse Rate 99 03/21/25 12:27 Respiratory Rate 18 03/21/25 12:27 Blood Pressure 126/72 03/21/25 12:27 Pulse Oximetry 99 03/21/25 12:27 Oxygen Delivery Method Room Air 03/21/25 12:27 Medical Decision Making MDM Narrative Medical decision making narrative: Very pleasant 69-year-old gentleman who is 5 days postop from a left total knee replacement presenting to the ER today because he noticed small volume bleeding into his dressing from the distal portion of the incision starting yesterday and a little bit more today. After we took the dressing us here we see there is no active bleeding and no any signs of wound dehiscence. At this point there is a little bit of erythema along the wound edge which we believe, after consultation with Orthopedics, CONSTANZA, Patricia Choe, is typical postop healing and not necessarily indicative of a wound infection. I do not see any other signs of infection. There is bruising and swelling which is expected from the postop situation. At this point we do not think he needs x-rays, ultrasound to look for DVT, lab workup, or admission for IV antibiotics. He is not anticoagulated. Plan of care per Orthopedics is to replace the dressing and continue his postop treatment. Follow up in clinic with him this week for recheck. Discussed this with the patient and he is in agreement. Precautions for return to the ER reviewed. Questions answered. Discharge Plan Discharge Clinical Impression: Post-op bleeding Patient Disposition: Home, Self-Care Condition: Stable Instructions: Total Knee Replacement (DC) Additional Instructions: As we discussed, so far your incision in the look okay. I am glad the bleeding is not continuing. I have discussed your bleeding annular appearance of your incision with the orthopedic team and they agree that your knee looks good for now. They do you want you to checkup with Dr. Cade this week in clinic. Please see ortho team or come back to the ER right away if you feel like her knee is getting worse (for instance, if you have worsening swelling, increasing pain, new redness or warmth, or fever, or more bleeding). Prescriptions: No Action triamcinolone acetonide 0.1 % paste 1 applic dental QDAY PRN Rx Instructions: use after food and/or drink and/or oral hygiene simvastatin 40 mg tablet 40 mg PO QPM Qty: 90 3RF losartan-hydrochlorothiazide 100-25 mg tablet 1 tab PO QDAY Qty: 90 1RF aspirin 81 mg tablet,delayed release (DR/EC) 81 mg PO QDAY Centrum Silver Men 300-600-300 mcg tablet 1 tab PO QDAY cetirizine 10 mg tablet 10 mg PO QDAY PRN sennosides [Senna Lax] 8.6 mg Tablet 17.2 mg PO BID PRN (Reason: constipation) Qty: 100 0RF aspirin [Aspirin Childrens] 81 mg tablet,chewable 81 mg PO BID 30 Days Qty: 60 0RF acetaminophen 500 mg capsule 500 - 1,000 mg PO Q6H MDD 4000mg per day PRN (Reason: pain) Qty: 100 0RF oxycodone 5 mg Tablet 2.5 - 5 mg PO Q4-6H MDD 6 tabs per day PRN (Reason: Pain) Qty: 42 0RF Rx Instructions: Minimize. Discontinue as soon as possible furosemide 20 mg tablet 20 mg PO DAILY Qty: 90 1RF Follow Up/Referrals: Phan Ambrose MD [Primary Care Provider, Family Practice] Stand Alone Forms: [employer] Info Instructions
== END 2025-03-21 13:41 | disposition home or self-care (01) ==
PROVIDERS: Emergency Provider Emergency Medicine; PCP Family Medicine
DX: L76.22 Postprocedural hemorrhage of skin and subcutaneous tissue following other procedure (principal); Z96.652 Presence of left artificial knee joint
CPT/HCPCS: 99282; 99283

== ENCOUNTER 2025-04-15 09:30 | Outpatient (RCR) | payer MEDICARE, BC, SELFPAY ==
--- NOTE | 2025-03-19 12:54 | PT.OPEX ---
PT [place] Out[facility] Eval PT [facility] Outpatient Eval Start: 03/18/25 17:16 Freq: Status: Active Protocol: Document 03/19/25 09:58 NLR (Rec: 03/19/25 12:50 NLR [id number]) E-signed By Milagros Schrader DPT Physical Therapy Outpatient Evaluation Insurance Information Recert Due Date 06/17/25 Insurance Name Medicare B,Blue [employer] Medical Diagnosis Z96.652 Presence L knee artificial joint Treating Diagnosis M25.562 Left knee pain M25.662 Left knee stiffness M62.552 Left thigh weakness Referring MD Huber Muniz MD Subjective Preferred Name ANGELA Subjective Angela arrives for PT evaluation following L TKA on . He is walking with FWW, is able to dress himself, went to basement to shower this morning and has been sleeping on a recliner so he doesn't roll over. Pain is mid range and he is working on weening off the oxycodone. He has been icing with a machine and with an ice pack. Pain Comments 5-7/10 Burning pain at left knee. Is weening off oxycodone. Date of Last 03/16/25 Physician Visit Date of Next 03/26/25 Physician Visit Date of Surgery (If 03/16/25 applicable) Current Work Status Retired Occupation Angela is retired. 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 He has been sleeping in a recliner (so he can't roll on his side). His bathroom is in the basement, but his 's bathroom is upstairs by the bedroom for toileting. His walk in shower is in the basement. He was able to get dressed on his own this morning (including shoe and sock). He likes to be outside in his yard. He has a [place] that he uses on an acreage. Precautions Treatment Dyspnea, HTN Precautions/ Contraindications Weight Bearing Weight Bear as Tolerated Status Therapy Limitations/ Not Limited Systems Review Objective Other/Pertinent ROM: RIGHT knee 0-125; LEFT knee 8-95 Objective STRENGTH: RIGHT thigh 4/5; LEFT thigh 3+/5 POSTURE: Forward flexed PALPATION: Patient exhibits tenderness to palpation at medial knee, lateral knee EDEMA: +3 non pitting L ankle, calf and knee FUNCTIONAL: Sit to/from stand modified independent; sit to/from supine modified independent; bed mobility modified independent; self-dressing independent GAIT: modified independent with FWW FOOTWEAR: Patient arrives wearing athletic shoes EQUIPMENT: Patient has FWW, walking 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 Patient is an appropriate candidate for skilled physical therapy to target deficits described above. Skilled PT intervention is necessary to achieve goals as stated. D/C plan and criteria is for patient to achieve the goals as outlined or until max rehab potential is met. Patient was agreeable with plan of care and goals established. This evaluation is of low complexity due to the stable nature of the patient?s presentation as well as the low comorbidities and medical factors included in this evaluation. Primary Functional Difficulty walking long distances or uneven surfaces, Limitations difficulty walking without gait aid, difficulty doing stairs Plan of Care Rehabilitation Good Potential Rehabilitation Patient is otherwise healthy and motivated to improve Potential Comments in order to return to prior level of function. Physical Therapy 1. Patient will be independent with home exercise Goals program as instructed, modified and progressed by physical therapist in order to be independently and actively participating in their rehabilitation and return to prior level of function. Goal to be achieved by 06/11/2025. 2. Patient will demonstrate ability to walk for 45 minutes(s) without significant increase in pain greater than 2/10 to allow patient to be able to safely and independently return to participation in desired level of function with daily activities such walking for exercise without pain or difficulty. Goal to be achieved by 06/11/2025. 3. Patient will ascend/descend 2 full flight(s) of stairs with ezec-awey-orju pattern without significant increase in difficulty or pain over 2/10 allowing for safe and independent mobility through their home/work environment. Goal to be achieved by 06/11/2025. Coordination/ Referral Source Communication With Treatment Plan/ Manual Therapy,Neuromuscular Re-ed,Self-Care/Home Direct Interventions Management,Therapeutic Activities,Therapeutic Exercises Frequency/Duration 1-2/week for 6-8 weeks Patient Will Be Completion of LTG(s),Skills Plateau,Independent w/HEP, Discharged From Independently Progressing Therapy Discharge Plan DC with HEP Comments Evaluation Billing Untimed Code 15 Treatment Minutes PT Eval No Charge No Complexity Low Certification Information Initial 03/19/25 Certification Date Ending Certification 06/17/25 Date Provider Signature Yes Required Provider Signature POC & Medical Necessity Shows Agreement With Physician NPI Number Write NPI# Here Physician Comment/ : Change Physician Signature Please Sign/Date Here & Date Requested
--- NOTE | 2025-04-09 11:03 | PT.OPDNX ---
PT [place] [facility] Daily Note PT [facility] Out[facility] Daily Note Start: 03/18/25 17:16 Freq: Status: Active Protocol: Document 04/08/25 09:30 NLR (Rec: 04/08/25 10:14 NLR [id number]) E-signed By Milagros Schrader DPT PT OP Daily Progress Note Visit Information Note Type Daily Note Visit Number 5 Insurance Information Recert Due Date 06/17/25 Insurance Name Medicare B,Blue Cross/Blue Shield Medical Diagnosis Z96.652 Presence L knee artificial joint Treating Diagnosis M25.562 Left knee pain M25.662 Left knee stiffness M62.552 Left thigh weakness Referring MD Huber Muniz MD Subjective Preferred Name ANGELA Subjective Angela reports that the exercises are going well. He can go up stairs step over step, still goes down step to. Sleeping remains difficult due to knee pain on the medial side. He has ordered a cushion for elevation. 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 The most difficult task is getting into and out of a higher piece of equipment. He has been wearing his compression sock but the edema is pooling at the top. Pain Comments current: 2/10 at worst: 4-5/10 done with Oxycodone Date of Last 03/26/25 Physician Visit Date of Next 04/26/25 Physician Visit Date of Surgery (If 03/16/25 applicable) Precautions Treatment Dyspnea, HTN Precautions/ Contraindications Weight Bearing Weight Bear as Tolerated Status Home Exercise Home Exercise Reviewed, modified and progressed HEP today. Comments Access Code: [email or web address] URL: [email or web address] Date: 04/08/2025 Prepared by: Milagros Schrader Exercises - Seated Ankle Pumps - 2-3 x daily - 7 x weekly - 10 reps - edema management exercise type - Seated Knee Flexion Stretch - 2 x daily - 7 x weekly - 1-2 reps - 10-30 seconds hold - range of motion/ stretch exercise type - Seated Passive Knee Extension - 2 x daily - 7 x weekly - 1-2 reps - 1-5 minutes hold - range of motion /stretch exercise type - Gastroc Stretch on Wall - 2 x daily - 4 reps - 10-15 seconds hold - Alternating Knee Flexion/Extension Stretch on Stairs - 2 x daily - 10-20 reps - 5-10 second hold - range of motion/stretch exercise type - Supported Controlled Step Up - 2 x daily - 2 sets - 10 reps - 2-3 seconds hold - strength exercise type - Supported Controlled Forward Step Down - 2 x daily - 2 sets - 10 reps - 2-3 seconds hold - strength exercise type - Standing Terminal Knee Extension at Wall with Ball - 2 x daily - 2 sets - 10 reps - 2-3 seconds hold - strength exercise type - Supported Y Slider - 2 x daily - 2 sets - 10 reps - 2-3 seconds hold - strength exercise type Objective Other/Pertinent ROM: RIGHT knee 0-125; LEFT knee 5-105 Objective STRENGTH: RIGHT thigh 4/5; LEFT thigh 4-/5 POSTURE: Forward flexed PALPATION: Patient exhibits tenderness to palpation at medial knee, lateral knee EDEMA: +3 non pitting L ankle, calf and knee FUNCTIONAL: Sit to/from stand modified independent; sit to/from supine modified independent; bed mobility modified independent; self-dressing independent GAIT: modified independent with FWW FOOTWEAR: Patient arrives wearing athletic shoes EQUIPMENT: Patient has FWW, walking sticks, wool buyer, leg customer experience leader, ice compression machine, ice pack Functional Test L SLS: up to 10 sec w/ practice Performed & Score Patient Instructed Yes in Risks/Benefits Therapeutic Exercise Therapeutic Exercise 30 Minutes (minutes) Therapeutic Exercise - Recumbent bike x 5 min, warm up and ROM, seat 10, L1, : To Restore full revolutions Functional Status - Leg press 70# B, 50# L - Quad extension 20# - Hamstring curl 30# - Seated Knee Flexion Stretch (125) - Seated Passive Knee Extension (0) - Gastroc Stretch on Wall - Alternating Knee Flexion/Extension Stretch on Stairs - Supported Controlled Step Up 6 step - Supported Controlled Forward Step Down 6 step - Standing Terminal Knee Extension at Wall with 9 Yoga Ball - Y Slider Manual Therapy Techniques Manual Therapy 15 Minutes (minutes) Manual Therapy - In supine w/ leg on pillow: STM/decongestive massage/ Techniques lymphatic stim to popliteal fossa, left knee Manual calf/hamstring stretching - Kinesiotape applied to left knee using one strips of Rock Standard (#2) in an edema squid pattern for an edema reduction correction. Patient instructed in risks and benefits and proper care of KT tape; questions were answered to the best of my ability. Recommended L compression sock for latent edema in foot . Treatment Minutes Timed Code Treatment 45 Minutes Total Treatment Time 45 Billing Units Manual Therapy Units 1 Therapeutic Exercise 2 Units Assessment/Impression Assessment/ Angela is making excellent progress toward goals both Impression functionally and for improved left knee ROM and strength. He is ambulating without gait with slight antalgia, however notably he has quite prominent R LE ER with gait that is not new. Have advanced HEP to include functional strengthening. At this time his residual edema is prompting further PT sessions to manage. Today recommended to continue with the knee high compression sock and then use the stockinette over the top to mid thigh for higher edema control to prevent pooling at the knee. Primary Functional Difficulty walking long distances or uneven surfaces, Limitations difficulty walking without gait aid, difficulty doing stairs Plan of Care Physical Therapy 1. Patient will be independent with home exercise Goals program as instructed, modified and progressed by physical therapist in order to be independently and actively participating in their rehabilitation and return to prior level of function. Goal to be achieved by 06/11/2025. 2. Patient will demonstrate ability to walk for 45 minutes(s) without significant increase in pain greater than 2/10 to allow patient to be able to safely and independently return to participation in desired level of function with daily activities such walking for exercise without pain or difficulty. Goal to be achieved by 06/11/2025. 3. Patient will ascend/descend 2 full flight(s) of stairs with [id number] pattern without significant increase in difficulty or pain over 2/10 allowing for safe and independent mobility through their home/work environment. Goal to be achieved by 06/11/2025. Daily Plan of Care Continue per POC Daily Plan of Care L knee 0-121 Comments Recommend knee high compression sock and knee stockinette for edema to prevent pooling at the knee. L TKA Cristy 03/16/25
== END 2025-04-15 13:43 | disposition home or self-care (01) ==
PROVIDERS: PCP Family Medicine; Visit Provider Orthopaedic Surgery
DX: Z47.1 Aftercare following joint replacement surgery (principal); Z96.652 Presence of left artificial knee joint; M25.562 Pain in left knee; Z51.89 Encounter for other specified aftercare
CPT/HCPCS: 97110; 97116; 97140; 97161; A9270

== ENCOUNTER 2025-05-18 12:35 | Outpatient (CLI) | payer MEDICARE, BC, SELFPAY ==
--- NOTE | 2025-05-18 13:55 | P.ANES_ITS ---
Anesthesia Charges Start Date/Time Anesthesia Start Date: 05/18/25 Anesthesia Start Time: 13:08 Stop Date/Time Anesthesia Stop Date: 05/18/25 Anesthesia Stop Time: 13:55 Coding CPT Codes CPT Codes: ANES LWR INTST NDSC NOS - 88149 ([id number]) P3 - PATIENT W/SEVERE SYS DISEASE, QK - SCHOOL LABORATORY TECHNICIAN 2-4 CNCRNT ANES PROC, QX - TECHNICAL SYSTEMS ARCHITECT SVC W/ MD MED DIRECTION
--- NOTE | 2025-05-18 13:55 | W.ANESCHARGE ---
Anesthesia Charges Start Date/Time Anesthesia Start Date: 05/18/25 Anesthesia Start Time: 13:08 Stop Date/Time Anesthesia Stop Date: 05/18/25 Anesthesia Stop Time: 13:55 Coding CPT Codes CPT Codes: ANES LWR INTST NDSC NOS - 45056 ([id number]) P3 - PATIENT W/SEVERE SYS DISEASE, QK - FINANCIAL PLANNER 2-4 CNCRNT ANES PROC, QX - ANIMAL [place]ARK CODE ENFORCEMENT OFFICER SVC W/ MD MED DIRECTION
--- NOTE | 2025-05-18 15:19 | W.ANESCHARGE ---
Anesthesia Charges Start Date/Time Anesthesia Start Date: 05/18/25 Anesthesia Start Time: 13:08 Stop Date/Time Anesthesia Stop Date: 05/18/25 Anesthesia Stop Time: 13:55 Summary Extremes of Age - Over 70 or under 1: MDA Coding CPT Codes CPT Codes: ANES LWR INTST NDSC NOS - 07159 ([id number]) QK - SENIOR INTEGRATION DEVELOPER 2-4 CNCRNT ANES PROC, QX - BANANA LOADER SVC W/ MD MED DIRECTION, P3 - PATIENT W/SEVERE SYS DISEASE Additional Codes: Summary - Extremes of Age - Over 70 or under 1: MDA ([id number])
== END 2025-05-18 12:36 | disposition home or self-care (01) ==
LOC: OP CLINIC 12:35
PROVIDERS: PCP Family Medicine; Visit Provider Surgery
DX: Z12.11 Encounter for screening for malignant neoplasm of colon (principal); D12.0 Benign neoplasm of cecum; D12.2 Benign neoplasm of ascending colon; D12.3 Benign neoplasm of transverse colon; Z86.0100 Personal history of colon polyps, unspecified
CPT/HCPCS: 00811; 00812; 45385; 99100; J2704